=== PATIENT | female | born 1985 | race Caucasian/White ===

== ENCOUNTER 2019-03-11 08:08 | Inpatient (IN) | payer OTHER ==
[~2019-03-11 08:08] MED LIST: BUPIVACAINE HCL/PF 0.25% (2.5MG/ML) 10 ML VIAL IJ ONE
[2019-03-11 08:51] VITALS: BMI 40.4
[2019-03-11] MEDS ORDERED: BUPIVACAINE HCL/PF 0.5% (5 MG/ML) 30 ML VIAL IJ ONE (09:02)
[2019-03-11] MEDS ORDERED: MIDAZOLAM HCL 2 MG/2 ML SINGLE DOSE VIAL ONE (09:02)
[2019-03-11] MEDS ORDERED: ACETAMINOPHEN INJECTION 100 ML IVPB ONE (09:42)
--- NOTE | 2019-03-11 10:32 | HP ---
Admitting History and Physical - Admission Chief Complaint: Morbid obesity History Source: Patient Limitations to Obtaining History: No Limitations - Past Medical History ...LMP: 02/22/19 ...LMP Comment: has Mirena ...: No Additional Past Medical History: Ovarian cyst Herniated disc - Past Surgical History Additional Past Surgical History: C spine surgery Tenotomy shoulder - Smoking History Smoking history: Never smoked - Alcohol/Substance Use Hx Alcohol Use: No - Social History ADL: Independent Home Medications - Allergies Allergies/Adverse Reactions: Allergies Allergy/AdvReac Type Severity Reaction Status Date / Time topiramate [From Topamax] Allergy Verified 03/11/19 08:13 - Home Medications Home Medications: Ambulatory Orders NK [No Known Home Medication] 03/01/19 Family Medical History Family History: Unremarkable Review of Systems - Review of Systems Constitutional: denies: Chills, Fever Neck: reports: No Symptoms Cardiovascular: reports: No Symptoms Respiratory: reports: No Symptoms Gastrointestinal: reports: No Symptoms Neurological: reports: No Symptoms Pain Intensity: 0 Physical Examination Vital Signs: Vital Signs Temperature 98.5 F 03/11/19 08:50 Pulse Rate 86 03/11/19 08:50 Respiratory Rate 19 03/11/19 08:50 Blood Pressure 150/91 03/11/19 08:50 O2 Sat by Pulse Oximetry (%) 96 03/11/19 08:33 Constitutional: Yes: Calm HENT: Yes: WNL Neck: Yes: WNL Cardiovascular: Yes: WNL Respiratory: Yes: Regular Gastrointestinal: Yes: Soft, Abdomen, Obese Neurological: Yes: Alert, Oriented Problem List - Problems (1) Morbid obesity due to excess calories Code(s): E66.01 - MORBID (SEVERE) OBESITY DUE TO EXCESS CALORIES Assessment/Plan Laparoscopic possible open vertical sleeve gastrectomy possible liver biopsy, upper endoscopy
[2019-03-11] MEDS ORDERED: ROCURONIUM BROMIDE 50 MG/5 ML SYRINGE ONE (10:33)
[2019-03-11] MEDS ORDERED: PROPOFOL 20 ML ONE (10:33)
[2019-03-11] MEDS ORDERED: ceFAZolin SODIUM 1 GM VIAL ONE (10:34)
[2019-03-11] MEDS ORDERED: SODIUM CHLORIDE 0.9% P/F 10 ML VIAL IJ ONE (10:34)
[2019-03-11] MEDS ORDERED: KETOROLAC TROMETHAMINE 30 MG/1 ML VIAL ONE (10:34)
[2019-03-11] MEDS ORDERED: ONDANSETRON 4 MG/2 ML VIAL ONE (10:34)
[2019-03-11] MEDS ORDERED: DEXAMETHASONE SOD PHOSPHATE 4 MG/1 ML VIAL ONE (10:34)
[2019-03-11] MEDS ORDERED: LIDOCAINE HCL/PF 2% SDV 5ML VIAL ONE (10:34)
[2019-03-11] MEDS ORDERED: BUPIVACAINE HCL/PF 2.5 MG/ML - 30 ML VIAL IJ ONE (10:43)
[2019-03-11] MEDS ORDERED: DESFLURANE GAS 240 ML BOTTLE IH ONE (11:20)
[2019-03-11] MEDS ORDERED: NEOSTIGMINE METHYLSULFATE 0.5 MG/ML - 10 ML MDV ONE (12:38)
[2019-03-11] MEDS ORDERED: BUPIVACAINE HCL/PF 0.25% (2.5MG/ML) 10 ML VIAL IJ ONE (12:41)
[2019-03-11] MEDS ORDERED: SODIUM CHLORIDE 1,000 ML IV SCH (13:00)
[2019-03-11] MEDS ORDERED: ONDANSETRON 4 MG/2 ML VIAL IVPUSH SCH (13:00)
--- NOTE | 2019-03-11 13:03 | OPR ---
Operative Note Operative Date: 03/11/19 Pre-Operative Diagnosis: Morbid obesity Operation: 1. Diagnostic laparoscopy. 2. Laparoscopic vertical sleeve gastrectomy. 3. Laparoscopic wedge liver biopsy. 4. Laparoscopic oversewing of gastric staple line Post-Operative Diagnosis: Same as Pre-op (as well as hepatomegaly and oozing from gastric staple line) Surgeon: Gordy Linares Compliance Analyst: Andrés Lui Anesthesia: General Specimens Removed: Greater curvature of stomach. Liver biopsy. Estimated Blood Loss (mls): 30 Drains & Tubes with Location: 36 Fr Bougie Operative Report Dictated: Yes
[2019-03-11] MEDS ORDERED: ONDANSETRON 4 MG/2 ML VIAL IVPUSH PRN (13:08)
[2019-03-11] MEDS ORDERED: oxyCODONE HCL 5 MG TABLET PO PRN ×2 (13:08)
[2019-03-11] MEDS ORDERED: PROMETHAZINE HCL 25 MG/1 ML VIAL IVPUSH PRN (13:08)
[2019-03-11] MEDS ORDERED: FAMOTIDINE 20 MG PREMIXED IVPB IVPB ONE (13:08)
[2019-03-11] MEDS: METOCLOPRAMIDE HCL INJECTION 10 MG/2 ML VIAL IVPUSH SCH ×2 (13:15→20:07)
[2019-03-11] MEDS ORDERED: FAMOTIDINE 20 MG/50 ML IVPB 20 MG/50 ML MG IVPB ONE (13:16)
[2019-03-11 13:40] LABS: HEMOGLOBIN 14.4 GM/dl (10.7-15.3); MCH 32.4 pg (25.7-33.7); MCHC 34.2 g/dl (32.0-36.0); MEAN CELL VOLUME 94.9 fl (80-96); MEAN PLT VOLUME 8.9 fl (7.5-11.1); PLATELET COUNT 171 K/MM3 (134-434); RBC 4.43 M/mm3 (3.60-5.2); RDW 11.8 % (11.6-15.6); WHITE BLOOD COUNT 8.8 K/mm3 (4.0-10.8)
[2019-03-11 13:44] LABS: ALBUMIN 3.9 g/dl (3.4-5.0); BILIRUBIN,TOTAL 0.8 mg/dl (0.2-1); CREATININE 0.7 mg/dl (0.55-1.3); POTASSIUM 4.2 mmol/L (3.5-5.1); TOT PROT 6.5 g/dl (6.4-8.2)
--- NOTE | 2019-03-11 15:16 | SPEC ---
DATE OF OPERATION: 03/11/2019 SURGEON: Carol Linares MD PROSECUTING ATTORNEY: Andrés Lui MD PREOPERATIVE DIAGNOSES: 1. Morbid obesity. 2. Body mass index greater than 40. POSTOPERATIVE DIAGNOSES: 1. Morbid obesity. 2. Body mass index greater than 40. 3. Hepatomegaly. 4. Oozing from gastric staple line. PROCEDURE: 1. Diagnostic laparoscopy. 2. Laparoscopic vertical sleeve gastrectomy. 3. Laparoscopic wedge liver biopsy. 4. Laparoscopic oversewing of gastric staple line for oozing. SPECIMEN: 1. Greater curvature of stomach. 2. Liver biopsy. ESTIMATED BLOOD LOSS: 30 mL. DRAINS: None. ANESTHESIA: GET. BOUGIE SIZE: 36 Prydeinig. REASON FOR PROCEDURE: This is a 33-year-old female, presents for weight loss options. After describing different options, she decided to proceed with laparoscopic, possible open, vertical sleeve gastrectomy, possible liver biopsy, upper endoscopy. RISKS AND BENEFITS: After describing the different options for weight loss management, the patient decided to proceed with a laparoscopic, possible open vertical sleeve gastrectomy. The patient was seen by the respective subspecialties and cleared for surgery. The risks and benefits of the procedure were explained. These included bleeding, infection, hernia, MN, DVT, PE, injury to surrounding structures including the liver, colon, bowel, spleen, esophagus, vessel injury, nerve injury, weight regain, gastric leak, staple line leak, sleeve leak, obstruction, vitamin deficiency, hair loss and as some of the possible complications. The patient understood and signed informed consent. DESCRIPTION OF PROCEDURE: The patient was placed supine on the operating room table. The patient underwent general endotracheal intubation. The arms were brought out at 90 degrees and secured. A footboard was placed and the legs were secured laterally with padding. The abdomen was prepped and draped in the usual sterile fashion. A timeout was performed. An incision was made in the left upper quadrant and a Veress needle inserted. Pneumoperitoneum was established. Subsequently, the Veress needle was removed and a 5-mm trocar was placed under direct visualization with the laparoscope. The laparoscopic camera was then inserted and inspection of the abdominal cavity was performed. An incision was then made in the supraumbilical area and a 15-mm trocar was placed under direct visualization. A 5-mm trocar was then placed in the right upper quadrant and a 5-mm trocar was placed below the left subcostal margin. A stab wound was made in the subxiphoid area and a Darlin clamp inserted and removed to dilate the tract. A Franklyn liver retractor was inserted. The post was secured at the bedside by the nursing staff. The patient was placed in steep reverse Trendelenburg position and the Franklyn liver retractor was used to secure the liver towards the anterior abdominal wall. The pylorus was identified and 6 cm proximal to it, the lesser sac was entered using the LigaSure device. All lateral attachments to the greater curvature of the stomach, including the short gastric vessels, were ligated using the LigaSure device toward the gastrosplenic and gastrophrenic ligaments. Once this was done in its entirety, it was confirmed that all tubes within the nasal or oropharyngeal cavity, including a temperature probe were removed by Anesthesia. The bougie was then inserted by Anesthesia. Transection of the stomach was then begun staying adjacent to the bougie but away from the angularis. Transection of the stomach was performed near the portion of the stomach where the lesser sac was entered. Two laparoscopic Endo-RAJENDRA black julian were used at this location. Laparoscopic Endo RAJENDRA purple staple loads were then used for the remainder of the transection until the greater curvature of the stomach was fully transected. This was done staying close to the bougie. Care was taken to stay away from the angle of His cephalad. The staple line was then inspected. Hemostasis was identified. A leak test was then performed. It was clamped distally to the staple line. Irrigation solution was placed in the left upper quadrant and air was insufflated by Anesthesia into the sleeve. No leaks were identified. No obstruction was identified. This was done through the entirety of the staple line. The stomach was suctioned and the bougie removed fully intact under direct visualization. At this point, the irrigation solution was suctioned and again, hemostasis was noted. A wedge liver biopsy was then performed. The left lobe of the liver was identified. A portion of the edge of the left lobe of the liver was grasped. Using electrocautery, a wedge of the left liver was excised. The specimen was removed and sent off the field. Hemostasis of the wedge liver biopsy site was attained and noted using electrocautery. The 15-mm supraumbilical trocar was then removed and the greater curvature specimen removed from the site using a sponge stick stroud. A Stuart-Mai device was then used to close the fascia with a 0 Vicryl suture at the site. Again, hemostasis was noted. The Franklyn liver retractor was then removed under direct visualization. Pneumoperitoneum was desufflated. Hemostasis was noted at all incision sites and Marcaine was injected at all incision sites. A 3-0 Vicryl suture was used to close the deep subcutaneous tissue at the 15-mm incision site. All incision sites were closed using 4-0 Biosyn. Sterile dressings were applied. The patient tolerated the procedure well and was transferred to the recovery room in stable condition. CAROL LINARES M.D. JENNIFER/[id number]
[2019-03-11] MEDS: ONDANSETRON 4 MG/2 ML VIAL IVPUSH SCH ×2 (18:00→21:45)
[2019-03-11] MEDS: ACETAMINOPHEN 1000 MG/100 ML VIAL (NON FORMULARY) IVPB SCH ×2 (18:00→19:33)
[2019-03-11] MEDS: FAMOTIDINE 20 MG/50 ML IVPB 20 MG/50 ML MG IVPB SCH (21:46)
[2019-03-11] MEDS: ENOXAPARIN NA (PORCINE) 40 MG/0.4 ML DISP.SYRIN SQ SCH (21:46)
[2019-03-12] MEDS: HYDROmorphone HCL CARPU-JECT 1 MG/1 ML DISP.SYRIN IVPB PRN ×3 (00:46→13:07)
[2019-03-12] MEDS: ACETAMINOPHEN 1000 MG/100 ML VIAL (NON FORMULARY) IVPB SCH ×2 (01:35→08:17)
[2019-03-12] MEDS: METOCLOPRAMIDE HCL INJECTION 10 MG/2 ML VIAL IVPUSH SCH ×3 (01:36→13:14)
[2019-03-12] MEDS: ONDANSETRON 4 MG/2 ML VIAL IVPUSH SCH ×4 (01:36→12:55)
[2019-03-12 08:06] LABS: HEMATOCRIT 38.5 % (32.4-45.2); MCH 32.1 pg (25.7-33.7); MCHC 33.8 g/dl (32.0-36.0); MEAN CELL VOLUME 95.2 fl (80-96); MEAN PLT VOLUME 8.8 fl (7.5-11.1); PLATELET COUNT 186 K/MM3 (134-434); RBC 4.05 M/mm3 (3.60-5.2); RDW 12.1 % (11.6-15.6); WHITE BLOOD COUNT 13.3 K/mm3 (4.0-10.8)
--- NOTE | 2019-03-12 08:35 | PN ---
Addendum entered and electronically signed by David Trevizo PA 03/12/19 09:59: UGI: negative leak/extravasation or gastric outlet obstruction. BST1 diet ordered. Original Note: Progress Note (short form) - Note Progress Note: POD#1 Pt with complaints upper abd pain/upper left breast. Pain relieved with IV dilaudid overnight. Slight nausea, no emesis. No SOB. OOB and ambulating, voiding on her own. Vital Signs Period Temp Pulse Resp BP Sys/[place]ca Pulse Ox Last 24 Hr 97.6 F-98.5 F 65-90 14-19 113-150/56-91 94-97 GEN: A&0x3, NAD CV: RRR Lungs: CTA b/l ABD; soft, non-distended, inc tenderness. Inc c/d/i. LE: no calf tenderness or swelling noted b/l. SCD/TEDs in place. CBC, BMP 03/12/19 07:25 Laboratory Tests 03/11/19 03/11/19 13:00 13:00 WBC 8.8 Hgb 14.4 Hct 42.0 Plt Count 171 Sodium 136 Potassium 4.2 Chloride 104 Carbon Dioxide 23 Anion Gap 9 BUN 11.0 Creatinine 0.7 A/p: 33 yo femlae s/p lap sleeve gastrectomy POD 1 Upper GI series this AM Pain control with Ofirmev 1g q6h, Dilaudid 1mg q3hrs prn DVT prophylaxis with Lovenox 40mg bid, b/l SCDS, b/l TEDS GI prophylaxis with Pepcid 20mg IV BID, Metoclopramide 10mg Iv q6hrs Zofran 4mg q4hrs prn n/v Remote tele/continuous pulse ox Monitor VS Monitor I&Os OOB ad ryan Continue IVF Incentive spirometry D/w Dr. Linares <Danielle Cuenca - Last Filed: 03/12/19 08:38> - Note Progress Note: POD 1 NO acute events UGI: no leak/obstruction Clears Discharge home <Gordy Linares - Last Filed: 03/12/19 20:09> Problem List - Problems (1) Morbid obesity due to excess calories Code(s): E66.01 - MORBID (SEVERE) OBESITY DUE TO EXCESS CALORIES <Gordy Linares - Last Filed: 03/12/19 20:09>
[2019-03-12] MEDS: FAMOTIDINE 20 MG/50 ML IVPB 20 MG/50 ML MG IVPB SCH (09:31)
[2019-03-12] MEDS: ENOXAPARIN NA (PORCINE) 40 MG/0.4 ML DISP.SYRIN SQ SCH (09:31)
[2019-03-12 10:56] LABS: ALBUMIN 3.6 g/dl (3.4-5.0); BILIRUBIN,TOTAL 1.2 mg/dL (0.2-1); BLOOD UREA NITROGEN 13.3 mg/dL (7-18); CALCIUM 9.1 mg/dL (8.5-10.1); CREATININE 0.7 mg/dL (0.55-1.3); POTASSIUM 4.4 mmol/L (3.5-5.1); TOT PROT 6.3 g/dl (6.4-8.2)
--- NOTE | 2019-03-12 13:50 | PN ---
Progress Note (short form) - Note Progress Note: ANESTHESIA POSTOP 33 YO FEMALE POD#1 S/P LAP GASTRIC SLEEVE Patient sitting in bed. Some discomfort but responding to pain medications. Tolerating limited clears. Ambulating as tolerated. VSS, Afebrile Continue current care. Encouraged IS and ambulation. No anesthetic complications.
[2019-03-12] MEDS ORDERED: oxyCODONE HCL 5 MG TABLET PO PRN (13:54)
[2019-03-12] MEDS ORDERED: SODIUM CHLORIDE 1,000 ML IV SCH (14:00)
[2019-03-12 14:16] VITALS: BP 134/78; PULSE 74; TEMP 97.8
--- NOTE | 2019-03-14 12:20 | PATH ---
Surgical Pathology Report Patient Name: MCKENNA VICTORIA Med. Rec. #: [id number] /Age/Gender: 1985 (Age: 33) / F Account: [id number] Location: [facility] Taken: 03/11/2019 Received: 03/11/2019 Reported: 03/14/2019 Physicians: Gordy Linares M.D. Specimen(s) Received A: GREATER CURVATURE STOMACH B: LIVER BIOPSY Clinical History Morbid obesity Final Diagnosis A. greater curvature OF stomach, laparoscopic gastric SLEEVE excision : Portion of stomach showing mild chronic mucosal inflammation. Immunostain is negative for H. pylori organisms. B. liver, biopsy: Moderate steatosis (~60%) with patchy mild Steatohepatitis (grade 1). Trichrome stain shows MILD PERISINUSOIDAL FIBROSIS (stage I). Iron stain shows no iron deposits. Note: The Non-Alcoholic Fatty Liver Disease Activity Score (KULDEEP) is as follows: steatosis: 2/3, hepatocyte balloonin/2, lobular inflammation: 1/3; total KUDLEEP score: 5/8. Kuldeep fibrosis score is 1(a)/4. Electronically Signed Tammy Mohamud M.D. Gross Description A. Received in formalin, labeled "greater curvature of stomach," is a 83 gram, 13.0 x 2.8 x 2.3 cm. portion of stomach with a stapled margin of resection. The serosa is stroud-fermin with minimal attached fat. The mucosa is stroud-pink with normal folds. No mucosal masses are identified. Car Groomer sections are submitted in one cassette. B. Received in formalin labeled "liver biopsy," is a 2.5 x 1.0 is 0.5 cm stroud, irregular portion of soft tissue, consistent with a portion of liver. The specimen is bisected and entirely submitted in one cassette. DL/03/12/2019 saudi03/12/2019
== END 2019-03-12 14:00 | disposition home or self-care (01) | DRG 621 ==
LOC: FM/S 08:08
PROVIDERS: ADMIT Surgery; ATTEND Surgery
PROC: 0DB64Z3 Excision of Stomach, Percutaneous Endoscopic Approach, Vertical (ICD-10-PCS; principal; 2019-03-11 11:35)
PROC: 0FB24ZX Excision of Left Lobe Liver, Percutaneous Endoscopic Approach, Diagnostic (ICD-10-PCS; 2019-03-11 11:35)
DX: E66.01 Morbid (severe) obesity due to excess calories (principal); Z68.41 Body mass index [BMI] 40.0-44.9, adult; R16.0 Hepatomegaly, not elsewhere classified
CPT/HCPCS: 36415; 74240-TC-FY; 80053; 84703; 85027; 94760; J0131; J7030